=== PATIENT | female | born 1980 | race Caucasian/White ===

== ENCOUNTER 2017-08-04 07:42 | Day surgery (SDC) | payer OTHER ==
[~2017-08-04] VITALS: Ht 162.6 cm; Wt 80.7 kg
[2017-08-04] MEDS ORDERED: LR 1,000 ML IV ONE (08:00)
[2017-08-04] MEDS ORDERED: ACETAMINOPHEN 650 MG SUPP PR ONE (08:00)
[2017-08-04 08:08] LABS: MEAN CORPUSCULAR HEMOGLOBIN 28.8 pg (27.0-33.0); MEAN CORPUSCULAR HGB CONC 33.8 g/dl (32.0-36.5); MEAN CORPUSCULAR VOLUME 85.4 fl (80.0-96.0); PLATELET COUNT, AUTOMATED 288 10^3/uL (150-450); RED CELL DISTRIBUTION WIDTH 12.9 % (11.5-14.5); WHITE BLOOD COUNT 7.1 10^3/uL (4.0-10.0)
[2017-08-04 08:31] LABS: ANION GAP 6 MEQ/L (8-16); BLOOD UREA NITROGEN 9 MG/DL (7-18); CALCIUM LEVEL 8.4 MG/DL (8.5-10.1); CARBON DIOXIDE LEVEL 29 MEQ/L (21-32); CHLORIDE LEVEL 107 MEQ/L (98-107); CREATININE FOR GFR 0.64 MG/DL (0.55-1.02); GLOMERULAR FILTRATION RATE > 60.0 (>60); GLUCOSE, FASTING 91 MG/DL (70-105); HCG, SERUM QUANTITATIVE < 1.0 MIU/ML; POTASSIUM SERUM 4.1 MEQ/L (3.5-5.1); SODIUM LEVEL 142 MEQ/L (136-145)
[2017-08-04] MEDS ORDERED: ACETAMINOPHEN 650 MG SUPP As Ordered ONE (09:02)
[2017-08-04] MEDS ORDERED: BUPIVACAINE HCL 0.25% 10 ML VIAL As Ordered ONE (09:02)
[2017-08-04] MEDS ORDERED: BUPIVACAINE LIPOSOME/PF 1.3% 20 ML VIAL (13.3MG/ML)(EXPAREL) As Ordered ONE (09:03)
[2017-08-04] MEDS ORDERED: MIDAZOLAM INJ 2 MG/2 ML VIAL (J2250) As Ordered ONE (09:34)
[2017-08-04] MEDS ORDERED: fentaNYL 100 MCG/2 ML INJECTION (J3010) As Ordered ONE (09:35)
[2017-08-04] MEDS ORDERED: ONDANSETRON 4MG/2ML VIAL (J2405) As Ordered ONE (09:35)
[2017-08-04] MEDS ORDERED: PROPOFOL 200 MG/20 ML VIAL As Ordered ONE (09:35)
[2017-08-04] MEDS ORDERED: LIDOCAINE 2% INJ 100 MG/5 ML SDV (FOR ANES.) As Ordered ONE (09:35)
[2017-08-04] MEDS ORDERED: dexameTHASONE 4 MG/ML 1ML VIAL (J1100) As Ordered ONE (09:35)
[2017-08-04] MEDS ORDERED: KETOROLAC 60 MG/2 ML VIAL (J1885) As Ordered ONE (09:44)
[2017-08-04] MEDS ORDERED: ePHEDrine SULFATE 25 MG/5 ML(5MG/ML) SYRINGE As Ordered ONE (09:45)
[2017-08-04] MEDS ORDERED: HYDROmorphone HCL 2 MG/ML 1ML VIAL (J1170) As Ordered ONE (10:11)
[2017-08-04] MEDS ORDERED: ONDANSETRON 4MG/2ML VIAL (J2405) IV PRN (10:45)
[2017-08-04] MEDS ORDERED: LR 1,000 ML IV SCH (10:45)
[2017-08-04] MEDS ORDERED: fentaNYL 100 MCG/2 ML INJECTION (J3010) IV PRN (10:45)
[2017-08-04 11:50] VITALS: BP 136/80
--- NOTE | 2017-08-05 10:04 | RO ---
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 POSTOPERATIVE DIAGNOSIS; Endometriosis, cutaneous, in previous section scar. OPERATION PROPOSED: Excision and removal of endometriosis in previous section scar and revision of scar. OPERATION PERFORMED: Excision and removal of endometriosis in previous section scar and revision of scar. SURGEON: Dr. Malvin Chino COLOR WORKER: Michael ANESTHESIA: General plus local anesthetic using Exparel 8 mL of a 50/50 mixture of 0.25% Marcaine and Exparel. ESTIMATED BLOOD LOSS: 20 mL. DESCRIPTION OF OPERATION: After adequate time-out, sequentials on board, appropriate antibiotic therapy, Mak catheter in the bladder draining clear urine, the marked area on the left side showed a large endometrioma within the incisional site of her previous section scar. Opening at the skin site and using Allis' we excised out the entire endometriosis or endometrioma in the incisional site, not reaching the fascia, mainly in the subcutaneous fat. We inadvertently opened up the area and found the chocolate brown material confirming the endometriosis. With that done, we then closed the space with #2-0 Vicryl. We closed the incisional site with a #3-0 Monocryl and using Exparel plus 0.25% Marcaine in a 50/50 mixture, placed appropriate analgesia in the area site, spray and Telfa. Mak catheter was removed and the patient was sent to recovery in good condition.
== END 2017-08-04 11:53 | disposition home or self-care (01) ==
LOC: M SDC 07:42
PROVIDERS: ATTEND Obstetrics & Gynecology
DX: N80.6 Endometriosis in cutaneous scar (principal); F41.9 Anxiety disorder, unspecified; Z88.2 Allergy status to sulfonamides; Z88.5 Allergy status to narcotic agent; Z86.14 Personal history of Methicillin resistant Staphylococcus aureus infection
CPT/HCPCS: 11403; 12032; 36415; 80048; 84702; 85027; 88305; J1100; J1170; J1885; J2250; J2405; J3010